=== PATIENT | male | born 1990 | race Caucasian/White ===

== ENCOUNTER 2018-12-20 12:21 | Day surgery (SDC) | payer OTHER ==
[~2018-12-20] VITALS: Ht 175.3 cm; Wt 67.8 kg
[2018-12-20 14:12] VITALS: Ht 175.3 cm; Wt 67.8 kg
[2018-12-20 14:30] VITALS: BP 111/68; PULSE 82; RESP 18
--- NOTE | 2018-12-20 14:50 | HPN ---
Date/Time of Note Date/Time of Note DATE: 12/20/18 TIME: 14:50 Interval H&P Admission Note Pt. seen H&P reviewed: No system changes TAYLA MATOS Dec 20, 2018 14:50
[2018-12-20] MEDS ORDERED: MIDAZOLAM 1 MG/ML 2 ML INJ ONE ×2 (14:55)
[2018-12-20] MEDS ORDERED: FENTAnyl 50 MCG/ML VIAL ONE (14:55)
[2018-12-20 15:08] VITALS: BP 113/65; RESP 13
== END 2018-12-20 17:05 | disposition home or self-care (01) ==
LOC: GIL 12:21
PROVIDERS: ATTEND Internal Medicine Gastroenterology
DX: K29.50 Unspecified chronic gastritis without bleeding (principal)
CPT/HCPCS: 43239; 88305; 88312; J2250; J3010